=== PATIENT | female | born 1995 | race Two or more races ===

== ENCOUNTER 2017-10-25 21:39 | Emergency (ER) | payer MEDICAID ==
[~2017-10-25] VITALS: Ht 162.6 cm; Wt 53.5 kg
--- NOTE | 2017-10-26 00:29 | NUR ---
DR. JHAVERI AT BEDSIDE FOR MSE.
[2017-10-26 00:57] LABS: *BILIRUBIN,URIN NEGATIVE (NEGATIVE); *BLOOD, URINE NEGATIVE (NEGATIVE); *CLARITY,URINE CLEAR (CLEAR); *COLOR,URINE YELLOW (YELLOW); *KETONES,URINE NEGATIVE (NEGATIVE); *PROTEIN,URINE NEGATIVE (NEGATIVE); LEUKOCYTE ESTERASE ,URINE 1+ (NEGATIVE); NITRITE, URINE NEGATIVE (NEGATIVE); UGLUCOSE NEGATIVE (NEGATIVE)
[2017-10-26 01:02] LABS: BACTERIA,URINE FEW /HPF (NONE SEEN); SQUAMOUS EPITHELIAL CELL,UR MANY /HPF (NONE SEEN)
[2017-10-26 01:03] LABS: *URINE HCG, QUAL NEGATIVE (NEGATIVE)
[2017-10-26 06:44] VITALS: BP 115/70
--- NOTE | 2017-10-26 06:45 | NUR ---
Patient discharged to home in stable conditon. Written and verbal after care instructions given with rx. Patient verbalizes understanding of instructions.
== END 2017-10-26 06:45 | disposition home or self-care (01) ==
LOC: ER 21:39
DX: R10.11 Right upper quadrant pain (principal)
CPT/HCPCS: 74176; 76856; 81001; 84703; 99285; A4663